=== PATIENT | male | born 1945 | race Caucasian/White ===

== ENCOUNTER 2019-11-24 13:12 | Outpatient (RCR) | payer MEDICARE, SELFPAY ==
--- NOTE | 2019-11-24 16:43 | STOPEVAL ---
Thank you for referring this patient to [facility]. Pt was seen for outpatient speech therapy services. Pt presents with very mild dysarthria. Pt was instructed he could return to for follow up HEP education 1x/week for 2 weeks. Please review, sign, date and return this plan of care YENIFER. I agree with and certify that the following plan of care is medically necessary. Referring Physician Date Admitting Provider: Attending Provider: PHYSICIAN NOT ON STAFF Referring Provider: * Outpatient Evaluation Start: 11/24/19 13:30 Freq: Status: Discharge Protocol: Document 11/24/19 13:15 BECHERERT (Rec: 11/24/19 14:09 BECHERERT [email or web address]) Therapy Assessment Status Assessment Status Assessment Status Evaluation Outpatient Past Medical History Neurological History Hx Cerebrovascular Accident (CVA) Yes Cardiovascular History Hx Cardiac Surgery Yes Hx Coronary Artery Bypass Graft Yes Hx Hypercholesterolemia Yes Hx Hypertension Yes Respiratory History Hx Asthma Yes: has inhaler, rarely uses Hx Bronchitis Yes: 07/2019 Hx Chest Surgery Yes: CABG 03/2019 Hx Sleep Apnea Yes: does not use CPAP Gastrointestinal History Hx Gastroesophageal Reflux Disease Yes Hx Polyps Yes Genitourinary History Hx Benign Prostatic Hyperplasia Yes Musculoskeletal History Hx Orthopedic Surgery Yes: R Knee ACL repair Hematological History Hx Blood Transfusions Yes: possible transfusion 2018-no reaction Endocrine History Hx Diabetes Yes: Type 2 HEENT History Hx Cataracts Yes: bilateral cataract removal Integumentary History Hx Skin Disorders No Significant History Reproductive History Hx Reproductive Disorders No Significant History Psychosocial History Hx Depression Yes Pain History History of Any Previous or Ongoing No Significant History Instance of Pain Anesthesia History Hx Anesthesia Reactions No Significant History Evaluation Information Problem Diagnosis Recurrent CVA; 3-4 total per pt. Additional Evaluation Detail Pt was admitted to [facility] x [address] and PT evaluations during that admission but none since discharge 2-3 weeks ago. Pt reported that he does not require any PT at this time. Subjective Information Pt is very pleasant; he was Query Text:As Reported By Patient/ able to provide all pertinent Family medical information. Pt stated
== END 2019-11-24 13:53 | disposition home or self-care (01) ==
LOC: ANHST 13:12
DX: I69.320 Aphasia following cerebral infarction (principal); I63.89 Other cerebral infarction
CPT/HCPCS: 92522; 92610